=== PATIENT | female | born 1955 | race Caucasian/White ===

== ENCOUNTER 2021-06-28 09:58 | Emergency (ER) | payer SELFPAY ==
[2021-06-28 10:28] LABS: #Monocytes 0.6 10x3/uL (0.0-1.1); #Neutrophils 9.3 10x3/uL (1.5-8.4); %Basophils 0.4 % (0.0-2.0); %Eosinophils 0.1 % (0.0-6.0); %Lymphocytes 8.2 % (18.0-47.0); %Monocytes 5.5 % (0.0-10.0); %Neutrophils 85.5 % (40.0-75.0); Hemoglobin 13.3 g/dL (12.0-15.5); Mean Corpuscular HGB CONC 32.5 g/dL (32.0-36.0); Mean Corpuscular Hemoglobin 29.4 pg (27.0-33.0); Mean Corpuscular Volume 90.3 fl (81.6-98.3); Platelet Count 229 10x3/uL (150-450); RBC Distribution Width 14.2 % (11.5-14.5); Red Blood Cell (RBC) Count 4.53 10x6/uL (3.90-5.03); White Blood Cell (WBC) Count 10.8 10x3/uL (3.5-10.5)
[2021-06-28] MEDS ORDERED: Ondansetron PF 4 MG/2 ML Vial ONE (10:45)
[2021-06-28] MEDS ORDERED: Morphine 4 MG/ML VIAL ONE ×2 (10:46)
[2021-06-28 11:00] LABS: ALT (SGPT) 18 U/L (8-55); AST (SGOT) 25 U/L (5-34); Albumin 3.9 g/dL (3.4-4.8); Alkaline Phosphatase 91 U/L (40-110); Anion Gap 16 mmol/L (10-20); BUN (Urea Nitrogen) 15 mg/dL (9.8-20.1); Bilirubin, Total 0.5 mg/dL (0.2-1.2); Calc. Creatinine Clearance 0 mL/min (70-130); Calcium 9.1 mg/dL (7.8-10.44); Carbon Dioxide 22 mmol/L (23-31); Chloride 105 mmol/L (98-107); Globulin 2.7 g/dL (2.4-3.5); Glucose 138 mg/dL (80-115); Protein, Total 6.6 g/dL (5.8-8.1); Sodium 139 mmol/L (136-145)
[2021-06-28 13:31] LABS: Bilirubin Neg (Negative); Blood, Urine 25 (Negative); Clarity Clear (Clear); Glucose, Urine (Dipstick) 50 mg/dL (Negative); Ketone, Urine Negative (Negative); Leukocyte 25 (Negative); Nitrite Negative (Negative); Protein, Urine (Dipstick) 30 mg/dl (Neg-Trace); Specific Gravity, Urine 1.025 (1.002-1.036); Urobilinogen Normal mg/dL (Less than 2)
[2021-06-28 13:47] LABS: Bacteria/HPF 1+ HPF (None Seen); Mucous/LPF 1+ LPF (<2+); Squamous Epithelial 0-3 HPF (0-3)
[2021-06-28] MEDS ORDERED: Diazepam 5 MG TAB ONE (15:01)
== END 2021-06-28 15:08 | disposition home or self-care (01) ==
LOC: CSHERS 09:58
DX: N39.0 Urinary tract infection, site not specified (principal); I48.91 Unspecified atrial fibrillation; Z79.899 Other long term (current) drug therapy
CPT/HCPCS: 71045; 74176; 80053; 81003; 81015; 84484; 85025; 87086; 93005; 96374; 96375; J2270; J2405

== ENCOUNTER 2021-09-27 07:17 | Inpatient (IN) | payer MEDICARE, OTHER, SELFPAY ==
[2021-09-27] MEDS ORDERED: Diltiazem 125 MG/25 ML ONE (07:34)
[2021-09-27 07:56] LABS: #Basophils 0.1 10x3/uL (0.0-0.2); #Eosinphils 0.1 10x3/uL (0.0-0.5); #Monocytes 0.7 10x3/uL (0.0-1.1); #Neutrophils 10.1 10x3/uL (1.5-8.4); %Basophils 0.8 % (0.0-2.0); %Lymphocytes 8.2 % (18.0-47.0); %Monocytes 6.1 % (0.0-10.0); %Neutrophils 83.5 % (40.0-75.0); Hemoglobin 13.4 g/dL (12.0-15.5); Mean Corpuscular HGB CONC 32.4 g/dL (32.0-36.0); Mean Corpuscular Hemoglobin 28.8 pg (27.0-33.0); Mean Corpuscular Volume 88.8 fl (81.6-98.3); Mean Platelet Volume 12.2 fl (7.4-10.4); Platelet Count 279 10x3/uL (150-450); RBC Distribution Width 15.2 % (11.5-14.5); Red Blood Cell (RBC) Count 4.66 10x6/uL (3.90-5.03); White Blood Cell (WBC) Count 12.1 10x3/uL (3.5-10.5)
[2021-09-27 10:02] LABS: ALT (SGPT) 21 U/L (8-55); AST (SGOT) 24 U/L (5-34); Albumin 3.7 g/dL (3.4-4.8); Alkaline Phosphatase 90 U/L (40-110); Anion Gap 17 mmol/L (10-20); BUN (Urea Nitrogen) 12 mg/dL (9.8-20.1); Bilirubin, Total 1.2 mg/dL (0.2-1.2); Calc. Creatinine Clearance 0 mL/min (70-130); Calcium 9.5 mg/dL (7.8-10.44); Carbon Dioxide 19 mmol/L (23-31); Chloride 105 mmol/L (98-107); Globulin 3.2 g/dL (2.4-3.5); Glucose 128 mg/dL (80-115); Potassium 4.1 mmol/L (3.5-5.1); Protein, Total 6.9 g/dL (5.8-8.1); Sodium 137 mmol/L (136-145)
[2021-09-27] MEDS ORDERED: Ondansetron ODT 4 MG TAB PO PRN (11:24)
[2021-09-27] MEDS ORDERED: Acetaminophen 325 MG TAB PO PRN (11:24)
[2021-09-27] MEDS ORDERED: Diltiazem 125 MG in Sodium Chloride 0.9% 100 ML IVPB SCH (11:30)
[2021-09-27 11:37] LABS: Troponin I 0.014 ng/mL (< 0.028)
[2021-09-27 12:00] LABS: SARS-CoV-2 PCR by NAA Not Detected (NotDetected)
[2021-09-27 14:25] LABS: Troponin I 0.017 ng/mL (< 0.028)
[2021-09-27] MEDS ORDERED: Furosemide 40 MG/4 ML VIAL SLOW IVP SCH (18:00)
[2021-09-27 19:17] LABS: Bilirubin Neg (Negative); Blood, Urine 10 (Negative); Clarity Clear (Clear); Glucose, Urine (Dipstick) Normal (Negative); Ketone, Urine Negative (Negative); Leukocyte 25 (Negative); Nitrite Negative (Negative); Protein, Urine (Dipstick) Negative (Neg-Trace); Specific Gravity, Urine 1.005 (1.002-1.036); Urobilinogen Normal mg/dL (Less than 2)
[2021-09-27 19:24] LABS: Bacteria/HPF None Seen HPF (None Seen); RBC/HPF 0-3 HPF (0-3); Squamous Epithelial 0-3 HPF (0-3); WBC/HPF 0-3 HPF (0-3)
[2021-09-27] MEDS ORDERED: Apixaban 5 MG TAB PO SCH (21:00)
[2021-09-27] MEDS: Sotalol HCl 80 MG TAB PO SCH (21:01)
[2021-09-28 04:54] LABS: #Basophils 0.1 10x3/uL (0.0-0.2); #Eosinphils 0.3 10x3/uL (0.0-0.5); #Monocytes 0.7 10x3/uL (0.0-1.1); #Neutrophils 6.5 10x3/uL (1.5-8.4); %Basophils 0.7 % (0.0-2.0); %Eosinophils 3.8 % (0.0-6.0); %Lymphocytes 12.8 % (18.0-47.0); %Monocytes 8.1 % (0.0-10.0); Hemoglobin 11.9 g/dL (12.0-15.5); Mean Corpuscular HGB CONC 31.6 g/dL (32.0-36.0); Mean Corpuscular Hemoglobin 28.7 pg (27.0-33.0); Mean Corpuscular Volume 90.8 fl (81.6-98.3); Mean Platelet Volume 12.3 fl (7.4-10.4); Platelet Count 216 10x3/uL (150-450); Red Blood Cell (RBC) Count 4.14 10x6/uL (3.90-5.03); White Blood Cell (WBC) Count 8.8 10x3/uL (3.5-10.5)
[2021-09-28 05:00] LABS: Anion Gap 15 mmol/L (10-20); BUN (Urea Nitrogen) 13 mg/dL (9.8-20.1); Calc. Creatinine Clearance 123 mL/min (70-130); Calcium 8.7 mg/dL (7.8-10.44); Carbon Dioxide 25 mmol/L (23-31); Chloride 104 mmol/L (98-107); Glucose 108 mg/dL (80-115); Potassium 3.5 mmol/L (3.5-5.1); Sodium 140 mmol/L (136-145)
[2021-09-28] MEDS: Furosemide 40 MG/4 ML VIAL SLOW IVP SCH ×2 (07:29→14:13)
[2021-09-28] MEDS ORDERED: Potassium Chloride 20 MEQ TAB PO SCH (07:30)
[2021-09-28] MEDS ORDERED: Electrolyte Replacement Protocol 1 EACH FS PRN (07:31)
[2021-09-28] MEDS: Ferrous Sulfate 325 MG TAB PO SCH (09:12)
[2021-09-28] MEDS: Apixaban 5 MG TAB PO SCH ×2 (09:12→20:44)
[2021-09-28] MEDS: Aspirin 81 mg Enteric Coated Tablet PO SCH (09:12)
[2021-09-28] MEDS: Bupropion 150 MG SR TAB PO SCH ×2 (09:12→20:44)
[2021-09-28] MEDS: Sotalol HCl 80 MG TAB PO SCH ×2 (09:13→20:45)
[2021-09-28 16:34] LABS: Anion Gap 16 mmol/L (10-20); BUN (Urea Nitrogen) 14 mg/dL (9.8-20.1); Calc. Creatinine Clearance 118 mL/min (70-130); Calcium 9.4 mg/dL (7.8-10.44); Carbon Dioxide 25 mmol/L (23-31); Chloride 103 mmol/L (98-107); Glucose 119 mg/dL (80-115); Potassium 3.9 mmol/L (3.5-5.1); Sodium 140 mmol/L (136-145)
[2021-09-29 05:33] VITALS: BMI 49.6
[2021-09-29] MEDS: Furosemide 40 MG/4 ML VIAL SLOW IVP SCH ×2 (05:34→14:45)
[2021-09-29 05:40] LABS: #Basophils 0.1 10x3/uL (0.0-0.2); #Eosinphils 0.6 10x3/uL (0.0-0.5); #Monocytes 0.8 10x3/uL (0.0-1.1); #Neutrophils 7.6 10x3/uL (1.5-8.4); %Basophils 0.9 % (0.0-2.0); %Eosinophils 5.5 % (0.0-6.0); %Lymphocytes 11.2 % (18.0-47.0); %Monocytes 7.8 % (0.0-10.0); %Neutrophils 74.1 % (40.0-75.0); Hemoglobin 12.7 g/dL (12.0-15.5); Mean Corpuscular HGB CONC 31.8 g/dL (32.0-36.0); Mean Corpuscular Hemoglobin 28.9 pg (27.0-33.0); Mean Corpuscular Volume 90.7 fl (81.6-98.3); Mean Platelet Volume 11.9 fl (7.4-10.4); Platelet Count 251 10x3/uL (150-450); RBC Distribution Width 15.1 % (11.5-14.5); White Blood Cell (WBC) Count 10.2 10x3/uL (3.5-10.5)
[2021-09-29 06:00] LABS: Anion Gap 14 mmol/L (10-20); BUN (Urea Nitrogen) 15 mg/dL (9.8-20.1); Calc. Creatinine Clearance 115 mL/min (70-130); Calcium 9.3 mg/dL (7.8-10.44); Carbon Dioxide 26 mmol/L (23-31); Chloride 103 mmol/L (98-107); Glucose 109 mg/dL (80-115); Potassium 4.1 mmol/L (3.5-5.1); Sodium 139 mmol/L (136-145)
[2021-09-29] MEDS: Bupropion 150 MG SR TAB PO SCH ×2 (08:18→20:19)
[2021-09-29] MEDS: Apixaban 5 MG TAB PO SCH ×2 (08:19→20:17)
[2021-09-29] MEDS: Sotalol HCl 80 MG TAB PO SCH ×2 (08:19→20:19)
[2021-09-29] MEDS: Aspirin 81 mg Enteric Coated Tablet PO SCH (08:19)
[2021-09-29] MEDS: Ferrous Sulfate 325 MG TAB PO SCH (08:20)
[2021-09-29] MEDS: Digoxin 0.5 MG/2 ML AMP SLOW IVP SCH ×3 (18:15→22:13)
[2021-09-29] MEDS: Diltiazem HCl SR 90 mg Capsule PO SCH (20:17)
[2021-09-30 04:51] LABS: #Basophils 0.1 10x3/uL (0.0-0.2); #Eosinphils 0.5 10x3/uL (0.0-0.5); #Monocytes 0.7 10x3/uL (0.0-1.1); #Neutrophils 7.1 10x3/uL (1.5-8.4); %Basophils 0.9 % (0.0-2.0); %Eosinophils 5.3 % (0.0-6.0); %Lymphocytes 13.2 % (18.0-47.0); %Monocytes 7.4 % (0.0-10.0); %Neutrophils 72.8 % (40.0-75.0); Hemoglobin 12.3 g/dL (12.0-15.5); Mean Corpuscular HGB CONC 32.7 g/dL (32.0-36.0); Mean Corpuscular Hemoglobin 29.1 pg (27.0-33.0); Mean Corpuscular Volume 88.9 fl (81.6-98.3); Mean Platelet Volume 12.1 fl (7.4-10.4); Platelet Count 243 10x3/uL (150-450); RBC Distribution Width 15.4 % (11.5-14.5); Red Blood Cell (RBC) Count 4.23 10x6/uL (3.90-5.03); White Blood Cell (WBC) Count 9.7 10x3/uL (3.5-10.5)
[2021-09-30 05:02] LABS: Anion Gap 13 mmol/L (10-20); BUN (Urea Nitrogen) 16 mg/dL (9.8-20.1); Calc. Creatinine Clearance 126 mL/min (70-130); Calcium 8.9 mg/dL (7.8-10.44); Carbon Dioxide 28 mmol/L (23-31); Chloride 102 mmol/L (98-107); Glucose 96 mg/dL (80-115); Potassium 3.7 mmol/L (3.5-5.1); Sodium 139 mmol/L (136-145)
[2021-09-30] MEDS ORDERED: Potassium Chloride 10 MEQ TAB PO SCH (08:00)
[2021-09-30] MEDS ORDERED: Digoxin 0.25 MG TAB PO SCH (09:00)
[2021-09-30] MEDS ORDERED: Furosemide 40 MG TAB PO SCH (09:00)
[2021-09-30] MEDS: Bupropion 150 MG SR TAB PO SCH (09:36)
[2021-09-30] MEDS: Apixaban 5 MG TAB PO SCH (09:37)
[2021-09-30] MEDS: Sotalol HCl 80 MG TAB PO SCH (09:38)
[2021-09-30] MEDS: Ferrous Sulfate 325 MG TAB PO SCH (09:39)
[2021-09-30] MEDS: Diltiazem HCl SR 90 mg Capsule PO SCH ×2 (09:39→17:59)
[2021-09-30 12:05] VITALS: TEMP 96.2
[2021-09-30] MEDS ORDERED: Potassium Chloride 20 MEQ TAB PO SCH (15:00)
[2021-09-30 17:36] VITALS: BP 147/70
== END 2021-09-30 17:30 | disposition home or self-care (01) | DRG 308 ==
LOC: CSHERS 07:17 → CSHTELE 16:16 → OBSVTOIN 09-28 15:19
PROVIDERS: ADMIT Family Medicine; ATTEND Internal Medicine
DX: I48.92 Unspecified atrial flutter (principal); I50.41 Acute combined systolic (congestive) and diastolic (congestive) heart failure; F41.9 Anxiety disorder, unspecified; I42.9 Cardiomyopathy, unspecified; F32.A Depression, unspecified; D72.829 Elevated white blood cell count, unspecified; I48.0 Paroxysmal atrial fibrillation; Z20.822 Contact with and (suspected) exposure to COVID-19; Z79.899 Other long term (current) drug therapy; Z90.710 Acquired absence of both cervix and uterus; Z79.82 Long term (current) use of aspirin; Z79.01 Long term (current) use of anticoagulants
CPT/HCPCS: 36415; 71045; 80048; 80053; 81001; 83735; 83880; 84443; 84484; 85025; 93005; 93010; 93306; 96375; 96376; 97139; G0378; J1160; J1940; U0003; U0005

== ENCOUNTER 2022-12-26 12:34 | Outpatient (CLI) | payer OTHER | END 2022-12-26 12:35 | disposition home or self-care (01) | LOC: CSHMAMMO 12:34 | PROVIDERS: ATTEND Physician Assistant | DX: Z12.31 Encounter for screening mammogram for malignant neoplasm of breast (principal); Z13.820 Encounter for screening for osteoporosis; M81.0 Age-related osteoporosis without current pathological fracture; Z78.0 Asymptomatic menopausal state | CPT/HCPCS: 77063; 77067; 77080 ==

== ENCOUNTER 2023-09-17 08:01 | Outpatient (CLI) | payer OTHER ==
[2023-09-17] MEDS ORDERED: Iopamidol 300 61% 100 ML VIAL FS ONE (09:52)
== END 2023-09-17 08:02 | disposition home or self-care (01) ==
LOC: CSHCT 08:01
PROVIDERS: ATTEND Urology
DX: N28.89 Other specified disorders of kidney and ureter (principal); R31.29 Other microscopic hematuria; N28.1 Cyst of kidney, acquired; D73.9 Disease of spleen, unspecified; N94.89 Other specified conditions associated with female genital organs and menstrual cycle
CPT/HCPCS: 74178

== ENCOUNTER 2023-10-24 07:52 | Outpatient (CLI) | payer OTHER | END 2023-10-24 07:53 | disposition home or self-care (01) | LOC: CSHMRI 07:52 | PROVIDERS: ATTEND Urology | DX: R93.7 Abnormal findings on diagnostic imaging of other parts of musculoskeletal system (principal); N28.89 Other specified disorders of kidney and ureter; G95.89 Other specified diseases of spinal cord; M47.814 Spondylosis without myelopathy or radiculopathy, thoracic region; M48.04 Spinal stenosis, thoracic region; N28.1 Cyst of kidney, acquired | CPT/HCPCS: 72157 ==

== ENCOUNTER 2025-05-10 12:19 | Outpatient (CLI) | payer OTHER | END 2025-05-10 12:20 | disposition home or self-care (01) | LOC: CSHMAMMO 12:19 | PROVIDERS: ATTEND Physician Assistant | DX: Z12.31 Encounter for screening mammogram for malignant neoplasm of breast (principal); Z85.528 Personal history of other malignant neoplasm of kidney | CPT/HCPCS: 77063; 77067 ==

== ENCOUNTER 2025-06-25 10:21 | Outpatient (CLI) | payer OTHER | END 2025-06-25 10:22 | disposition home or self-care (01) | LOC: CSHULT 10:21 | PROVIDERS: ATTEND Urology | DX: C64.1 Malignant neoplasm of right kidney, except renal pelvis (principal); M41.9 Scoliosis, unspecified; Z90.5 Acquired absence of kidney; N28.1 Cyst of kidney, acquired | CPT/HCPCS: 71046; 74018; 76770 ==